=== PATIENT | female | born 1960 | race African-American/Black ===

== ENCOUNTER 2017-10-04 12:46 | Outpatient (CLI) | payer MEDICARE, MEDICAID | END 2017-10-04 12:47 | disposition home or self-care (01) | LOC: BICULT 12:46 | PROVIDERS: ATTEND Urology | DX: N20.0 Calculus of kidney (principal); N28.1 Cyst of kidney, acquired | CPT/HCPCS: 36415; 76770; 80048; 81001; 83970; 84100; 84550; 85025; 87086 ==

== ENCOUNTER 2021-04-11 13:07 | Day surgery (SDC) | payer MEDICARE, MEDICAID ==
[2021-04-09 15:41] VITALS: BMI 35.3
[2021-04-11] MEDS ORDERED: Levofloxacin 500 mg/D5W 100 ml Premix Bag ONE (13:40)
[2021-04-11] MEDS ORDERED: Fentanyl 100 MCG/2 ML VIAL ONE (16:36)
[2021-04-11] MEDS ORDERED: Bupivacaine 0.25% HCL 30 ML VIAL ONE (16:46)
[2021-04-11] MEDS ORDERED: Heparin 10,000 UNITS/ 10 ML VIAL ONE (16:46)
[2021-04-11] MEDS ORDERED: Lidocaine 1% w/Epinephrine 1:100K 20 ML VIAL ONE (16:46)
[2021-04-11] MEDS ORDERED: SUGAMMADEX SODIUM 200 MG/2 ML VIAL ONE (16:52)
[2021-04-11] MEDS ORDERED: Metoclopramide HCl 10 MG/2 ML VIAL ONE (16:55)
[2021-04-11] MEDS ORDERED: Rocuronium Bromide 10 MG/ML (10ML VIAL) ONE (16:55)
[2021-04-11] MEDS ORDERED: Lidocaine 1% PF 5 ML VIAL ONE (16:55)
[2021-04-11] MEDS ORDERED: Ondansetron PF 4 MG/2 ML Vial ONE (16:55)
[2021-04-11] MEDS ORDERED: PROPOFOL 200 MG/20 ML VIAL ONE (16:55)
== END 2021-04-11 19:35 | disposition home or self-care (01) ==
LOC: SDC 13:07
PROVIDERS: ATTEND Surgery
PROC: 0WHG43Z Insertion of Infusion Device into Peritoneal Cavity, Percutaneous Endoscopic Approach (ICD-10-PCS; principal; 2021-04-11)
DX: I12.0 Hypertensive chronic kidney disease with stage 5 chronic kidney disease or end stage renal disease (principal); E11.22 Type 2 diabetes mellitus with diabetic chronic kidney disease; N18.6 End stage renal disease; D63.1 Anemia in chronic kidney disease; K21.9 Gastro-esophageal reflux disease without esophagitis; M10.9 Gout, unspecified; Z88.0 Allergy status to penicillin; Z88.1 Allergy status to other antibiotic agents; Z88.5 Allergy status to narcotic agent; Z88.6 Allergy status to analgesic agent; Z79.82 Long term (current) use of aspirin; Z79.899 Other long term (current) drug therapy
CPT/HCPCS: J1644; J1956; J2405; J2704; J2765; J3010; S0020

== ENCOUNTER 2021-05-13 23:33 | Inpatient (IN) | payer MEDICARE, MEDICAID ==
[2021-05-14 00:31] LABS: #Eosinphils 0.2 thou/uL (0.0-0.7); #Lymphocytes 1.6 thou/uL (1.20-3.40); #Monocytes 0.5 thou/uL (0.11-0.59); #Neutrophils 9.5 thou/uL (1.40-6.50); %Basophils 0.3 % (0.0-1.0); %Eosinophils 1.9 % (0.0-10.0); %Lymphocytes 13.7 % (21.0-51.0); %Monocytes 4.2 % (0.0-10.0); %Neutrophils 79.8 % (42.0-75.0); Hemoglobin 9.8 g/dL (12.0-16.0); Mean Corpuscular HGB CONC 32.5 g/dL (32.0-36.0); Mean Corpuscular Hemoglobin 28.3 pg (27.0-31.0); Mean Corpuscular Volume 86.9 fL (78.0-98.0); Mean Platelet Volume 7.2 fL (7.4-10.4); Platelet Count 235 thou/uL (130-400); RBC Distribution Width 13.9 % (11.5-14.5); Red Blood Cell (RBC) Count 3.48 mill/uL (4.20-5.40); White Blood Cell (WBC) Count 11.9 thou/uL (4.8-10.8)
[2021-05-14] MEDS ORDERED: Morphine 4 MG/ML VIAL ONE ×2 (00:34→01:25)
[2021-05-14] MEDS ORDERED: Ondansetron PF 4 MG/2 ML Vial ONE (00:34)
[2021-05-14 01:03] LABS: ALT (SGPT) 14 U/L (8-55); AST (SGOT) 21 U/L (5-34); Albumin 4.3 g/dL (3.4-4.8); Alkaline Phosphatase 58 U/L (40-110); Anion Gap 19 mmol/L (10-20); BUN (Urea Nitrogen) 61 mg/dL (9.8-20.1); Bilirubin, Total 0.4 mg/dL (0.2-1.2); Calc. Creatinine Clearance 0 mL/min (70-130); Calcium 11.1 mg/dL (7.8-10.44); Carbon Dioxide 23 mmol/L (23-31); Chloride 102 mmol/L (98-107); Globulin 3.9 g/dL (2.4-3.5); Glucose 147 mg/dL (80-115); Lipase 96 U/L (8-78); Potassium 3.6 mmol/L (3.5-5.1); Protein, Total 8.2 g/dL (5.8-8.1); Sodium 140 mmol/L (136-145)
[2021-05-14] MEDS ORDERED: cefTRIAXone\\ROCEPHIN 2 GM VIAL ONE (01:23)
[2021-05-14 02:48] LABS: RBC Count-Automated (BF) 40 /cu.mm; WBC/Nucleated-Auto (BF) 20 uL
[2021-05-14 03:10] LABS: BF Color Colorless; Body Fluid Source Ascites Body Fluid; Clarity Clear (Clear); Tube # EDTA
[2021-05-14 03:12] LABS: BF Segmented Neutrophils 8 %; Cell Count Non Hematic 2 %; Eosinophils 3 %; Lymphocytes 87 %
[2021-05-14] MEDS ORDERED: VANCOMYCIN 1.75 GM/350 ML BAG 1.75 GM in Premix Bag 1 BAG IVPB SCH (04:00)
[2021-05-14 05:38] LABS: SARS-CoV-2 NAA Rapid Test Not Detected (NotDetected)
[2021-05-14] MEDS: Morphine 4 MG/ML VIAL SLOW IVP PRN ×2 (06:44→10:51)
[2021-05-14] MEDS: Ondansetron PF 4 MG/2 ML Vial IVP PRN (06:44)
[2021-05-14] MEDS ORDERED: Dextrose 5% in Water 1,000 ML IV PRN (08:59)
[2021-05-14] MEDS ORDERED: Dextrose 50% Abboject 50 ML SYRINGE SLOW IVP PRN (08:59)
[2021-05-14] MEDS ORDERED: HumaLOG 300 UNITS/3 ML VIAL SC PRN ×2 (08:59)
[2021-05-14] MEDS ORDERED: Carvedilol 25 MG TAB PO SCH (09:00)
[2021-05-14] MEDS ORDERED: OLMESARTAN MED PO SCH (09:00)
[2021-05-14] MEDS ORDERED: Allopurinol 300 MG TAB PO SCH (09:00)
[2021-05-14] MEDS ORDERED: [UNRECOGNIZED DRUG - OTHER] PO SCH (09:00)
[2021-05-14] MEDS ORDERED: AMLODIPINE BES PO SCH (09:00)
[2021-05-14] MEDS ORDERED: Iopamidol-370 76% 500 ML 1 ML ONE (09:13)
[2021-05-14] MEDS: Aspirin 81 mg Enteric Coated Tablet PO SCH ×2 (10:59→11:58)
[2021-05-14 11:57] VITALS: BMI 37.5
[2021-05-14] MEDS: Docusate 100 MG CAP PO SCH ×2 (11:58→21:11)
[2021-05-14 12:17] LABS: Bacteria/HPF None Seen HPF (None Seen); Bilirubin Negative (Negative); Blood, Urine Negative (Negative); Glucose, Urine (Dipstick) Normal (Negative); Ketone, Urine Negative (Negative); Leukocyte 75 Leu/uL (Negative); Nitrite Negative (Negative); Protein, Urine (Dipstick) 200 mg/dL (Neg-Trace); RBC/HPF None Seen HPF (0-3); Squamous Epithelial None Seen HPF (0-3); Urobilinogen Normal mg/dL (Less than 2); WBC/HPF None Seen HPF (0-3)
[2021-05-14 12:21] LABS: Clarity Hazy (Clear)
[2021-05-14] MEDS ORDERED: Vancomycin 1 GM in Premix Bag 1 BAG IVPB SCH (16:00)
[2021-05-14] MEDS: traMADol HCl 50 MG TAB PO PRN (16:15)
[2021-05-14] MEDS: Carvedilol 25 MG TAB PO SCH (21:11)
[2021-05-14] MEDS: Cipro 250 MG TAB PO SCH (21:11)
[2021-05-15] MEDS: traMADol HCl 50 MG TAB PO PRN ×3 (01:33→12:31)
[2021-05-15] MEDS ORDERED: cefTRIAXone\\ROCEPHIN 1 GM in Sodium Chloride 0.9% 100 ML IVPB SCH (02:00)
[2021-05-15] MEDS: Cipro 250 MG TAB PO SCH ×2 (06:17→20:48)
[2021-05-15 06:58] LABS: #Eosinphils 0.3 thou/uL (0.0-0.7); #Lymphocytes 1.5 thou/uL (1.20-3.40); #Monocytes 0.7 thou/uL (0.11-0.59); #Neutrophils 5.1 thou/uL (1.40-6.50); %Basophils 0.5 % (0.0-1.0); %Eosinophils 3.4 % (0.0-10.0); %Lymphocytes 19.3 % (21.0-51.0); %Monocytes 9.4 % (0.0-10.0); %Neutrophils 67.4 % (42.0-75.0); Hemoglobin 8.5 g/dL (12.0-16.0); Mean Corpuscular HGB CONC 32.7 g/dL (32.0-36.0); Mean Corpuscular Hemoglobin 28.6 pg (27.0-31.0); Mean Corpuscular Volume 87.5 fL (78.0-98.0); Mean Platelet Volume 7.5 fL (7.4-10.4); Platelet Count 193 thou/uL (130-400); RBC Distribution Width 13.8 % (11.5-14.5); Red Blood Cell (RBC) Count 2.96 mill/uL (4.20-5.40); White Blood Cell (WBC) Count 7.6 thou/uL (4.8-10.8)
[2021-05-15 07:11] LABS: Anion Gap 17 mmol/L (10-20); BUN (Urea Nitrogen) 67 mg/dL (9.8-20.1); Calc. Creatinine Clearance 9 mL/min (70-130); Calcium 10.2 mg/dL (7.8-10.44); Carbon Dioxide 24 mmol/L (23-31); Chloride 101 mmol/L (98-107); Glucose 84 mg/dL (80-115); Sodium 139 mmol/L (136-145)
[2021-05-15 07:16] LABS: Potassium 2.9 mmol/L (3.5-5.1)
[2021-05-15] MEDS ORDERED: Potassium Chloride 20 MEQ TAB PO SCH (07:45)
[2021-05-15] MEDS: Losartan 25 MG TAB PO SCH (08:02)
[2021-05-15] MEDS: Amlodipine 10 MG TAB PO SCH (08:05)
[2021-05-15] MEDS: Docusate 100 MG CAP PO SCH ×2 (08:06→20:48)
[2021-05-15] MEDS: Carvedilol 25 MG TAB PO SCH ×2 (08:06→20:48)
[2021-05-15] MEDS: Aspirin 81 mg Enteric Coated Tablet PO SCH (08:06)
[2021-05-15] MEDS: Allopurinol 100 MG TAB PO SCH (08:07)
[2021-05-15] MEDS: Morphine 4 MG/ML VIAL SLOW IVP PRN ×3 (08:13→20:47)
[2021-05-15] MEDS ORDERED: Epoetin (ESRD) 20,000 UNITS/ML SC SCH (09:15)
[2021-05-15] MEDS ORDERED: EPOETIN ALFA-EPBX (ESRD) 4,000 UNIT/ML VIAL SC SCH (12:00)
[2021-05-16] MEDS: traMADol HCl 50 MG TAB PO PRN ×4 (00:32→17:39)
[2021-05-16] MEDS: Cipro 250 MG TAB PO SCH ×2 (05:52→20:20)
[2021-05-16 06:20] LABS: #Eosinphils 0.3 thou/uL (0.0-0.7); #Lymphocytes 1.6 thou/uL (1.20-3.40); #Monocytes 0.7 thou/uL (0.11-0.59); #Neutrophils 4.2 thou/uL (1.40-6.50); %Basophils 0.3 % (0.0-1.0); %Eosinophils 4.5 % (0.0-10.0); %Lymphocytes 23.1 % (21.0-51.0); %Monocytes 10.5 % (0.0-10.0); %Neutrophils 61.6 % (42.0-75.0); Mean Corpuscular HGB CONC 31.5 g/dL (32.0-36.0); Mean Corpuscular Hemoglobin 27.9 pg (27.0-31.0); Mean Corpuscular Volume 88.4 fL (78.0-98.0); Mean Platelet Volume 8.2 fL (7.4-10.4); Platelet Count 178 thou/uL (130-400); Red Blood Cell (RBC) Count 2.86 mill/uL (4.20-5.40); White Blood Cell (WBC) Count 6.8 thou/uL (4.8-10.8)
[2021-05-16 06:39] LABS: Anion Gap 16 mmol/L (10-20); BUN (Urea Nitrogen) 69 mg/dL (9.8-20.1); Calc. Creatinine Clearance 9 mL/min (70-130); Carbon Dioxide 24 mmol/L (23-31); Chloride 102 mmol/L (98-107); Glucose 88 mg/dL (80-115); Potassium 3.1 mmol/L (3.5-5.1); Sodium 139 mmol/L (136-145)
[2021-05-16] MEDS ORDERED: Potassium Chloride 20 MEQ TAB PO SCH (07:15)
[2021-05-16] MEDS: Carvedilol 25 MG TAB PO SCH ×2 (08:15→20:33)
[2021-05-16] MEDS: Amlodipine 10 MG TAB PO SCH (08:15)
[2021-05-16] MEDS: Losartan 25 MG TAB PO SCH (08:16)
[2021-05-16] MEDS: Allopurinol 100 MG TAB PO SCH (08:22)
[2021-05-16] MEDS: Docusate 100 MG CAP PO SCH ×2 (08:22→20:20)
[2021-05-16] MEDS: Aspirin 81 mg Enteric Coated Tablet PO SCH (08:22)
[2021-05-16] MEDS: Gabapentin 300 MG CAP PO SCH ×2 (09:35→20:20)
[2021-05-17] MEDS: traMADol HCl 50 MG TAB PO PRN ×2 (01:47→23:12)
[2021-05-17] MEDS: Cipro 250 MG TAB PO SCH ×2 (05:50→19:47)
[2021-05-17 07:16] LABS: Anion Gap 18 mmol/L (10-20); BUN (Urea Nitrogen) 66 mg/dL (9.8-20.1); Calc. Creatinine Clearance 8 mL/min (70-130); Calcium 10.8 mg/dL (7.8-10.44); Carbon Dioxide 23 mmol/L (23-31); Chloride 106 mmol/L (98-107); Glucose 99 mg/dL (80-115); Potassium 3.6 mmol/L (3.5-5.1); Sodium 143 mmol/L (136-145)
[2021-05-17 07:25] LABS: #Eosinphils 0.3 thou/uL (0.0-0.7); #Lymphocytes 1.5 thou/uL (1.20-3.40); #Monocytes 0.8 thou/uL (0.11-0.59); #Neutrophils 5.5 thou/uL (1.40-6.50); %Basophils 0.2 % (0.0-1.0); %Eosinophils 3.9 % (0.0-10.0); %Lymphocytes 18.5 % (21.0-51.0); %Neutrophils 67.4 % (42.0-75.0); Hemoglobin 8.3 g/dL (12.0-16.0); Hypochromia SLIGHT = 6-15 cells (100X) (0-5/hpf); MDiff Complete? YES; Mean Corpuscular HGB CONC 29.4 g/dL (32.0-36.0); Mean Corpuscular Hemoglobin 26.1 pg (27.0-31.0); Mean Corpuscular Volume 88.9 fL (78.0-98.0); Mean Platelet Volume 7.8 fL (7.4-10.4); Platelet Count 212 thou/uL (130-400); RBC Distribution Width 13.9 % (11.5-14.5); Red Blood Cell (RBC) Count 3.17 mill/uL (4.20-5.40); White Blood Cell (WBC) Count 8.2 thou/uL (4.8-10.8)
[2021-05-17] MEDS: Carvedilol 25 MG TAB PO SCH ×2 (08:42→19:47)
[2021-05-17] MEDS: Amlodipine 10 MG TAB PO SCH (08:42)
[2021-05-17] MEDS: Losartan 25 MG TAB PO SCH (08:42)
[2021-05-17] MEDS: Allopurinol 100 MG TAB PO SCH (08:44)
[2021-05-17] MEDS: Gabapentin 300 MG CAP PO SCH ×2 (08:44→17:34)
[2021-05-17] MEDS: Aspirin 81 mg Enteric Coated Tablet PO SCH (08:44)
[2021-05-17] MEDS: Docusate 100 MG CAP PO SCH ×2 (08:44→19:47)
[2021-05-17] MEDS: Heparin 5,000 UNITS/ML VIAL SC SCH (19:48)
[2021-05-18] MEDS: Cipro 250 MG TAB PO SCH ×2 (05:03→20:53)
[2021-05-18] MEDS: traMADol HCl 50 MG TAB PO PRN ×2 (05:04→20:58)
[2021-05-18 07:27] LABS: Anion Gap 18 mmol/L (10-20); BUN (Urea Nitrogen) 66 mg/dL (9.8-20.1); Calc. Creatinine Clearance 8 mL/min (70-130); Calcium 10.4 mg/dL (7.8-10.44); Carbon Dioxide 24 mmol/L (23-31); Chloride 102 mmol/L (98-107); Glucose 98 mg/dL (80-115); Potassium 3.4 mmol/L (3.5-5.1); Sodium 141 mmol/L (136-145)
[2021-05-18 08:25] LABS: #Eosinphils 0.3 thou/uL (0.0-0.7); #Lymphocytes 1.6 thou/uL (1.20-3.40); #Monocytes 0.6 thou/uL (0.11-0.59); #Neutrophils 3.8 thou/uL (1.40-6.50); %Basophils 0.5 % (0.0-1.0); %Lymphocytes 25.1 % (21.0-51.0); %Monocytes 9.7 % (0.0-10.0); %Neutrophils 59.8 % (42.0-75.0); Mean Corpuscular HGB CONC 30.5 g/dL (32.0-36.0); Mean Corpuscular Hemoglobin 27.3 pg (27.0-31.0); Mean Corpuscular Volume 89.7 fL (78.0-98.0); Mean Platelet Volume 7.7 fL (7.4-10.4); Platelet Count 220 thou/uL (130-400); Red Blood Cell (RBC) Count 2.94 mill/uL (4.20-5.40); White Blood Cell (WBC) Count 6.3 thou/uL (4.8-10.8)
[2021-05-18] MEDS: Allopurinol 100 MG TAB PO SCH (08:59)
[2021-05-18] MEDS: Docusate 100 MG CAP PO SCH ×2 (08:59→20:53)
[2021-05-18] MEDS: Aspirin 81 mg Enteric Coated Tablet PO SCH (08:59)
[2021-05-18] MEDS: Heparin 5,000 UNITS/ML VIAL SC SCH ×2 (09:00→20:53)
[2021-05-18] MEDS: Carvedilol 25 MG TAB PO SCH ×2 (09:00→20:53)
[2021-05-18] MEDS: Amlodipine 10 MG TAB PO SCH (09:01)
[2021-05-18] MEDS ORDERED: Potassium Chloride 20 MEQ TAB PO SCH (11:00)
[2021-05-19] MEDS: Cipro 250 MG TAB PO SCH ×2 (05:36→21:44)
[2021-05-19 07:06] LABS: #Eosinphils 0.2 thou/uL (0.0-0.7); #Lymphocytes 1.3 thou/uL (1.20-3.40); #Monocytes 0.4 thou/uL (0.11-0.59); #Neutrophils 3.4 thou/uL (1.40-6.50); %Basophils 0.4 % (0.0-1.0); %Eosinophils 4.6 % (0.0-10.0); %Lymphocytes 23.9 % (21.0-51.0); %Neutrophils 63.2 % (42.0-75.0); Hemoglobin 8.4 g/dL (12.0-16.0); Mean Corpuscular Hemoglobin 28.3 pg (27.0-31.0); Mean Corpuscular Volume 88.4 fL (78.0-98.0); Mean Platelet Volume 7.6 fL (7.4-10.4); Platelet Count 223 thou/uL (130-400); RBC Distribution Width 13.7 % (11.5-14.5); Red Blood Cell (RBC) Count 2.97 mill/uL (4.20-5.40); White Blood Cell (WBC) Count 5.4 thou/uL (4.8-10.8)
[2021-05-19 07:28] LABS: Anion Gap 18 mmol/L (10-20); BUN (Urea Nitrogen) 67 mg/dL (9.8-20.1); Calc. Creatinine Clearance 8 mL/min (70-130); Calcium 10.4 mg/dL (7.8-10.44); Carbon Dioxide 25 mmol/L (23-31); Chloride 103 mmol/L (98-107); Glucose 83 mg/dL (80-115); Sodium 142 mmol/L (136-145)
[2021-05-19] MEDS: Docusate 100 MG CAP PO SCH ×2 (08:50→21:44)
[2021-05-19] MEDS: Amlodipine 10 MG TAB PO SCH (08:51)
[2021-05-19] MEDS: Carvedilol 25 MG TAB PO SCH ×2 (08:51→21:43)
[2021-05-19] MEDS: Allopurinol 100 MG TAB PO SCH (08:51)
[2021-05-19] MEDS: Aspirin 81 mg Enteric Coated Tablet PO SCH (08:51)
[2021-05-19] MEDS: Heparin 5,000 UNITS/ML VIAL SC SCH ×2 (08:52→21:45)
[2021-05-19] MEDS: traMADol HCl 50 MG TAB PO PRN (09:47)
[2021-05-19] MEDS: Morphine 4 MG/ML VIAL SLOW IVP PRN ×2 (14:21→21:48)
[2021-05-19] MEDS: Ondansetron PF 4 MG/2 ML Vial IVP PRN (14:22)
[2021-05-19] MEDS: Gabapentin 300 MG CAP PO SCH (17:45)
[2021-05-20] MEDS: Morphine 4 MG/ML VIAL SLOW IVP PRN (04:46)
[2021-05-20] MEDS: Cipro 250 MG TAB PO SCH (05:16)
[2021-05-20] MEDS: Docusate 100 MG CAP PO SCH (09:31)
[2021-05-20] MEDS: Carvedilol 25 MG TAB PO SCH (09:31)
[2021-05-20] MEDS: Amlodipine 10 MG TAB PO SCH (09:31)
[2021-05-20] MEDS: Allopurinol 100 MG TAB PO SCH (09:33)
[2021-05-20] MEDS: Heparin 5,000 UNITS/ML VIAL SC SCH (09:33)
[2021-05-20] MEDS: Aspirin 81 mg Enteric Coated Tablet PO SCH (09:33)
[2021-05-20] MEDS ORDERED: Gabapentin 300 MG CAP PO SCH (10:00)
[2021-05-20 12:38] VITALS: BP 127/73; TEMP 98.3
== END 2021-05-20 12:47 | disposition home or self-care (01) | DRG 391 ==
LOC: ERS 23:33 → INTOOBSV 05-14 02:13 → T4-B 05-14 02:13 → OBSVTOIN 05-16 14:21
PROVIDERS: ADMIT Internal Medicine; ATTEND Internal Medicine
PROC: 5A1D70Z Performance of Urinary Filtration, Intermittent, Less than 6 Hours Per Day (ICD-10-PCS; principal; 2021-05-20)
DX: R10.9 Unspecified abdominal pain (principal); N18.6 End stage renal disease; R18.8 Other ascites; I42.9 Cardiomyopathy, unspecified; I12.0 Hypertensive chronic kidney disease with stage 5 chronic kidney disease or end stage renal disease; G62.9 Polyneuropathy, unspecified; Z20.822 Contact with and (suspected) exposure to COVID-19; K21.9 Gastro-esophageal reflux disease without esophagitis; M10.9 Gout, unspecified; K59.00 Constipation, unspecified; F17.210 Nicotine dependence, cigarettes, uncomplicated; E83.52 Hypercalcemia; E11.22 Type 2 diabetes mellitus with diabetic chronic kidney disease; E66.01 Morbid (severe) obesity due to excess calories; N20.0 Calculus of kidney; M19.90 Unspecified osteoarthritis, unspecified site; D63.1 Anemia in chronic kidney disease; N28.1 Cyst of kidney, acquired; Z88.1 Allergy status to other antibiotic agents; Z88.5 Allergy status to narcotic agent; Z88.8 Allergy status to other drugs, medicaments and biological substances; Z79.82 Long term (current) use of aspirin; Z79.899 Other long term (current) drug therapy; Z98.890 Other specified postprocedural states; Z98.51 Tubal ligation status; Z90.710 Acquired absence of both cervix and uterus; Z90.49 Acquired absence of other specified parts of digestive tract; Z99.2 Dependence on renal dialysis; Z68.37 Body mass index [BMI] 37.0-37.9, adult; E87.6 Hypokalemia; I95.9 Hypotension, unspecified; E86.9 Volume depletion, unspecified
CPT/HCPCS: 36415; 36416; 70450; 72100; 74176; 74178; 80048; 80053; 81001; 82042; 82945; 83605; 83690; 84157; 85025; 85060; 87040; 87070; 87205; 89051; 90945; 93005; 96365; 96366; 96372; 96374; 96375; 96376; G0257; G0378; J0696; J1644; J2270; J2405; J3370; Q5105; Q9967; U0002

== ENCOUNTER 2021-06-07 02:22 | Emergency (ER) | payer MEDICARE, MEDICAID ==
[2021-06-07 02:50] LABS: #Eosinphils 0.3 thou/uL (0.0-0.7); #Lymphocytes 1.5 thou/uL (1.20-3.40); #Monocytes 0.4 thou/uL (0.11-0.59); #Neutrophils 4.8 thou/uL (1.40-6.50); %Basophils 0.3 % (0.0-1.0); %Lymphocytes 21.3 % (21.0-51.0); %Neutrophils 68.4 % (42.0-75.0); Hemoglobin 8.4 g/dL (12.0-16.0); Mean Corpuscular Hemoglobin 28.9 pg (27.0-31.0); Mean Corpuscular Volume 87.5 fL (78.0-98.0); Mean Platelet Volume 7.5 fL (7.4-10.4); Platelet Count 233 thou/uL (130-400); RBC Distribution Width 13.6 % (11.5-14.5); Red Blood Cell (RBC) Count 2.92 mill/uL (4.20-5.40)
[2021-06-07 03:12] LABS: ALT (SGPT) 11 U/L (8-55); AST (SGOT) 18 U/L (5-34); Albumin 3.5 g/dL (3.4-4.8); Alkaline Phosphatase 43 U/L (40-110); Anion Gap 18 mmol/L (10-20); BUN (Urea Nitrogen) 64 mg/dL (9.8-20.1); Bilirubin, Total 0.2 mg/dL (0.2-1.2); Calc. Creatinine Clearance 0 mL/min (70-130); Calcium 9.7 mg/dL (7.8-10.44); Carbon Dioxide 22 mmol/L (23-31); Chloride 103 mmol/L (98-107); Globulin 3.5 g/dL (2.4-3.5); Glucose 107 mg/dL (80-115); Potassium 3.2 mmol/L (3.5-5.1); Sodium 140 mmol/L (136-145)
[2021-06-07 03:30] LABS: RBC Count-Automated (BF) 0 /cu.mm; WBC/Nucleated-Auto (BF) 73 uL
[2021-06-07] MEDS ORDERED: Fentanyl 100 MCG/2 ML VIAL ONE (03:44)
[2021-06-07 03:51] LABS: BF Color Colorless; Body Fluid Source Peritoneal Fluid; Clarity Clear (Clear)
[2021-06-07 03:52] LABS: BF Segmented Neutrophils 8 %; Cell Count Non Hematic 18 %; Lymphocytes 74 %
[2021-06-07] MEDS ORDERED: Iopamidol-370 76% 500 ML 1 ML ONE (10:10)
== END 2021-06-07 05:09 | disposition home or self-care (01) ==
LOC: ERS 02:22
DX: R10.9 Unspecified abdominal pain (principal); E03.9 Hypothyroidism, unspecified; E11.9 Type 2 diabetes mellitus without complications; K21.9 Gastro-esophageal reflux disease without esophagitis; I10 Essential (primary) hypertension; Z87.891 Personal history of nicotine dependence
CPT/HCPCS: 74177; 80053; 82945; 85025; 85060; 87070; 87205; 89051; 96374; J3010; Q9967